=== PATIENT | male | born 1955 | race Caucasian/White ===

== ENCOUNTER 2017-01-30 11:55 | Outpatient (CLI) | payer OTHER ==
--- NOTE | 2017-01-30 17:55 | XRAY Report ---
THREE VIEW BILATERAL FEET: 01/30/2017 CLINICAL INDICATION: Bilateral pain, plantar fasciitis. AP, lateral, oblique views of the bilateral feet demonstrate mild osteoarthritic changes. There is n o evidence of acute fracture or dislocation. Bilateral plantar and posterior calcaneal spurring is p resent. IMPRESSION: OSTEOARTHRITIS. 15:9:03 JOB #: [id number] EXT JOB #:[id number]
== END 2017-01-30 11:56 | disposition home or self-care (01) ==
LOC: DI.N 11:55
PROVIDERS: ATTEND Internal Medicine
DX: M19.072 Primary osteoarthritis, left ankle and foot (principal); M19.071 Primary osteoarthritis, right ankle and foot; M72.2 Plantar fascial fibromatosis

== ENCOUNTER 2019-01-07 16:17 | Outpatient (CLI) | payer BC, OTHER ==
--- NOTE | 2019-01-08 14:24 | XRAY Report ---
Reason: LEFT KNEE PAIN, BILAT HAND CRENITUS LOCKING Procedure Date: 01/07/2019 Accession Number: [id number] / [id number] Procedure: XR - Knee 3 View LT CPT Code: FULL RESULT: EXAM: LEFT KNEE RADIOGRAPHY EXAM DATE: 01/07/2019 05:00 PM. CLINICAL HISTORY: Left knee pain. COMPARISON: XR KNEE 4 OR MORE VIEWS 07/15/2009 3:25 PM LEFT KNEE 07/26/2009 1:19 PM. TECHNIQUE: 3 views. FINDINGS: Bones: No acute fracture or bony lesion. Mild degenerative spurring. Superior patellar enthesophyte. Joints: Mild narrowing of the medial and patellofemoral compartment of the left knee. No knee effusion. No dislocation. Soft Tissues: Normal. No soft tissue swelling. IMPRESSION: 1. Mild degenerative changes of the left knee. [facility]
--- NOTE | 2019-01-08 14:24 | XRAY Report ---
Reason: LEFT KNEE PAIN, BILAT HAND CRENITUS LOCKING Procedure Date: 01/07/2019 Accession Number: [id number] / [id number] Procedure: XR - Hand 3 View BILAT CPT Code: FULL RESULT: EXAMS: 1. Right Hand Radiography 2. Left Hand Radiography EXAM DATE: 01/07/2019 05:00 PM. CLINICAL HISTORY: Bilateral hand crepitus, locking. COMPARISON: None. TECHNIQUE: 3 views each hand. FINDINGS: Right: Bones: No acute fracture or bony lesion. No bony erosions. Minimal degenerative spurring. Joints: Mild joint space narrowing of the DIP and PIP and first and second metacarpophalangeal joints and first carpometacarpal joint. No dislocation. Soft Tissues: Normal. No soft tissue swelling. Left: Bones: No acute fracture or bony lesion. No bony erosions. Minimal degenerative spurring. Joints: Mild joint space narrowing of the DIP and PIP and first, second, and third metacarpophalangeal joints and the first carpometacarpal joint. No dislocation. Soft Tissues: Normal. No soft tissue swelling. IMPRESSION: 1. Mild degenerative changes of the right and left hand. RADIA
== END 2019-01-07 16:18 | disposition home or self-care (01) ==
LOC: DI 16:17
PROVIDERS: ATTEND Internal Medicine
DX: M17.12 Unilateral primary osteoarthritis, left knee (principal); M19.042 Primary osteoarthritis, left hand; M19.041 Primary osteoarthritis, right hand; M18.0 Bilateral primary osteoarthritis of first carpometacarpal joints